=== PATIENT | male | born 1960 | race Caucasian/White ===

== ENCOUNTER 2021-09-24 13:01 | Observation (INO) ==
[2021-09-24] MEDS ORDERED: *HR* LORazepam 2 MG/ML VIAL IM ONE (13:11)
[2021-09-24] MEDS ORDERED: Ziprasidone 10 MG, Closed System Device IM Kit 1 EACH in Water for inj. (sterile) 0.5 ML IM ONE (13:13)
[2021-09-24] MEDS ORDERED: Ziprasidone 20 MG/VIAL VIAL IM ONE (13:21)
[2021-09-24] MEDS ORDERED: Water for inj. (sterile) 10 ML ONE (13:21)
[2021-09-24 13:59] LABS: Bilirubin,Urine Negative (Negative); Blood,Urine Negative (Negative); Clarity,Urine Clear (Clear); Color,Urine Yellow (Yellow); Glucose,Urine (UA) Normal (Normal); Ketones,Urine Negative (Negative); Leukocyte Esterase,Urine Negative (Negative); Nitrite,Urine Negative (Negative); PH,Urine 5.5 pH Units (5.0-8.0); Protein,Urine Trace mg/dL (Neg-Trace); Specific Gravity,Urine > 1.030 (1.010-1.025); Urobilinogen,Urine Normal (Normal)
[2021-09-24 14:08] LABS: Basophils # 0.1 K/mcL (0.0-0.2); Basophils % 0.6 %; Eosinophils # 0.3 K/mcL (0.0-0.6); Eosinophils % 2.8 %; Hematocrit 42.4 % (37.5-50.1); Hemoglobin 15.7 g/dL (12.9-16.9); Immature Granulocytes % 0.5 % (0-4); Lymphocytes # 2.4 K/mcL (0.6-4.6); Lymphocytes % 22.3 %; Mean Corpuscular Hemoglobin 30.7 pg (28.0-33.3); Mean Platelet Volume 9.5 fL (9.4-12.4); Monocytes # 1.3 K/mcL (0.0-1.3); Monocytes % 12.1 %; Neutrophils # 6.5 K/mcL (1.6-8.9); Platelet Count 250 K/mcL (140-400); Red Blood Count 5.11 M/mcL (4.19-5.50); Red Cell Distribution Width 12.6 % (11.5-14.5); Segmented Neutrophils % 61.7 %; White Blood Count 10.5 K/mcL (4.3-11.1)
[2021-09-24 14:24] LABS: Amphetamine Screen,Urine Positive ng/mL (Cutoff=1000); Barbiturate Screen,Urine Positive ng/mL (Cutoff=200); Benzodiazepines Screen,Urine Negative ng/mL (Cutoff=200); Cannabinoid Screen,Urine Positive ng/mL (Cutoff = 50); Cocaine Screen,Urine Negative ng/mL (Cutoff= 300); Opiate Screen,Urine Negative ng/mL (Cutoff=300); Phencyclidine Screen,Urine Negative ng/mL (Cutoff=25)
[2021-09-24 14:46] LABS: Acetaminophen < 10 mcg/mL (10-20); BUN/Creatinine Ratio 25 (6-26); Blood Urea Nitrogen 28 mg/dL (8-23); Calcium 9.4 mg/dL (8.6-10.3); Carbon Dioxide 25 mEq/L (23-29); Chloride 103 mEq/L (98-107); Chol/HDL Ratio 2.4 (0-4.9); Cholesterol 191 mg/dL (< 200); Ethanol < 10 mg/dL (Less than 10); Glucose 112 mg/dL (70-105); HDL Cholesterol 79 mg/dL (40-59); LDL Cholesterol,Calculated 87 mg/dL (< 100); Osmolality,Calculated 290 (280-300); Salicylate < 2.5 mg/dL (15.0-30.0); Sodium 137 mEq/L (136-145); Triglycerides 124 mg/dL (< 150); eGFR For African Americans > 60 (> 60); eGFR For Non-African Americans > 60 (> 60)
[2021-09-24 15:21] LABS: Estimated Average Glucose 103 mg/dl; Hemoglobin A1C 5.2 %
[2021-09-24 23:55] LABS: Influenza A PCR Negative (Negative); Influenza B PCR Negative (Negative); Resp. Syncytial Virus PCR Negative (Negative)
[2021-09-24 23:56] LABS: SARS-CoV-2 by PCR (In House) Negative (Negative)
[2021-09-25] MEDS ORDERED: hydrOXYzine pamoate 25 MG CAPSULE PO PRN (15:41)
[2021-09-25] MEDS ORDERED: *HR* LORazepam 1 MG TABLET PO PRN (15:41)
[2021-09-25] MEDS ORDERED: QUEtiapine Fumarate 25 MG TABLET PO PRN (15:41)
[2021-09-25] MEDS ORDERED: haloperidoL 5 MG TABLET PO PRN (15:41)
[2021-09-25] MEDS ORDERED: Haloperidol Lactate 5 MG/ML VIAL IM PRN (15:41)
[2021-09-25] MEDS ORDERED: Acetaminophen 325 MG TABLET PO PRN (15:41)
[2021-09-25] MEDS ORDERED: *HR* LORazepam 2 MG/ML VIAL IM PRN (15:41)
[2021-09-25] MEDS ORDERED: Acetaminophen/Butalbital/CaffeineTABLET PO PRN (17:57)
[2021-09-25] MEDS ORDERED: Celecoxib 200 MG CAPSULE PO PRN (17:57)
[2021-09-26] MEDS ORDERED: Mag Hydrox/Al Hydrox/Simeth 30 ML UDC PO PRN (08:11)
[2021-09-26] MEDS ORDERED: MOM Conc 10 ML UD.LIQ PO PRN (08:11)
[2021-09-26 08:22] VITALS: BP 114/72; PULSE 77; TEMP 97.6; O2SAT 96
== END 2021-09-26 13:05 | disposition home or self-care (01) ==
LOC: EMEROOARM 13:01 → INTOOBSV 09-25 15:21 → 1ANU 09-25 15:21
PROVIDERS: ADMIT Psychiatry & Neurology Psychiatry; ATTEND Psychiatry & Neurology Psychiatry